=== PATIENT | male | born 1965 | race African-American/Black ===

== ENCOUNTER 2018-12-08 13:29 | Inpatient (IN) | payer OTHER ==
[2018-12-08 14:21] VITALS: BMI 30.2
--- NOTE | 2018-12-08 15:01 | HP ---
CIWA Score Nausea/Vomitin-No Nausea/No Vomiting Muscle Tremors: 4-Moderate,w/Arms Extend Anxiety: 4-Mod. Anxious/Guarded Agitation: 4-Moderately Restless Paroxysmal Sweats: 3 Orientation: 0-Oriented Tacttile Disturbances: 0-None Auditory Disturbances: 0-None Visual Disturbances: 0-None Headache: 1-Very Mild CIWA-Ar Total Score: 16 - Admission Criteria OASAS Guidelines: Admission for Medically Managed Detox: Requires at least one of the followin. CIWA greater than 12 2. Seizures within the past 24 hours 3. Delirium tremens within the past 24 hours 4. Hallucinations within the past 24 hours 5. Acute intervention needed for co occurring medical disorder 6. Acute intervention needed for co occurring psychiatric disorder 7. Severe withdrawal that cannot be handled at a lower level of care (continued vomiting, continued diarrhea, abnormal vital signs) requiring intravenous medication and/or fluids 8. Admission ROS S - [facility] Chief Complaint: i need help Allergies/Adverse Reactions: Allergies Allergy/AdvReac Type Severity Reaction Status Date / Time No Known Allergies Allergy Verified 12/08/18 14:42 History of Present Illness: pt is a 52yr old male with a history of alcohol and cocaine dependence seeking detox for treatment. Exam Limitations: No Limitations - Ebola screening Have you traveled outside of the country in the last 21 days: No Have you had contact with anyone from an Ebola affected area: No Have you been sick,other than usual withdrawal symptoms: No Do you have a fever: No - Review of Systems Constitutional: Chills, Diaphoresis, Night Sweats, Changes in sleep EENT: reports: Blurred Vision Respiratory: reports: No Symptoms reported Cardiac: reports: No Symptoms Reported GI: reports: Poor Appetite, Poor Fluid Intake : reports: Frequency Musculoskeletal: reports: Joint Pain Integumentary: reports: Flushing, Sweating, Other (ligia abscess to righ and left arm for IVD use) Neuro: reports: Headache, Tingling, Tremors Endocrine: reports: Excessive Sweating, Flushing, Intolerance to Cold, Intolerance to Heat Hematology: reports: No Symptoms Reported Psychiatric: reports: Judgement Intact, Mood/Affect Appropiate, Orientated x3, Agitated, Anxious Other Systems: Reviewed and Negative Patient History - Patient Medical History Hx Anemia: No Hx Asthma: No Hx Chronic Obstructive Pulmonary Disease (COPD): No Hx Cancer: No Hx Cardiac Disorders: No Hx Congestive Heart Failure: No Hx Hypertension: No Hx Hypercholesterolemia: No Hx Pacemaker: No HX Cerebrovascular Accident: No Hx Seizures: No Hx Dementia: No Hx Diabetes: No Hx Gastrointestinal Disorders: No Hx Liver Disease: No Hx Genitourinary Disorders: No Hx Sexually Transmitted Disorders: No Hx Renal Disease (ESRD): No Hx Thyroid Disease: No Hx Human Immunodeficiency Virus (HIV): Yes (since 1991-not currently taking any meds) Hx Hepatitis C: Yes Hx Depression: No Hx Suicide Attempt: No (denies) Hx Bipolar Disorder: No Hx Schizophrenia: No - Patient Surgical History Past Surgical History: No - PPD History Previous Implant?: Yes Documented Results: Negative w/o proof PPD to be Administered?: Yes - Reproductive History Patient is a Female of Child Bearing Age (11 -55 yrs old): No - Smoking Cessation Smoking history: Current every day smoker Have you smoked in the past 12 months: Yes Aproximately how many cigarettes per day: 10 Hx Chewing Tobacco Use: No Initiated information on smoking cessation: Yes 'Breaking Loose' booklet given: 12/08/18 - Substance & Tx. History Hx Alcohol Use: Yes Hx Substance Use: Yes Substance Use Type: Alcohol, Cocaine Hx Substance Use Treatment: Yes ([facility]) - Substances Abused Alcohol Route: Oral Frequency: Daily Amount used: whisky- one pint/beer 6pack Age of first use: 15 Date of Last Use: 12/08/18 Cocaine Route: Injection Frequency: 3-6 times per week Amount used: quarter gram Age of first use: 17 Date of Last Use: 12/07/18 Family Disease History - Family Disease History Family Disease History: Diabetes: Father Admission Physical Exam S - Vital Signs Vital Signs: Vital Signs - 24 hr 12/08/18 14:19 Temperature 98.8 F Pulse Rate 98 H Respiratory 18 Rate Blood Pressure 163/78 - Physical General Appearance: Yes: Appropriately Dressed, Moderate Distress, Obese, Tremorous, Irritable, Sweating, Anxious HEENTM: Yes: Hearing grossly Normal, Normal Voice, Nasal Congestion, Rhinorrhea Respiratory: Yes: Lungs Clear, Normal Breath Sounds, No Respiratory Distress Neck: Yes: No masses,lesions,Nodules Breast: Yes: Within Normal Limits Cardiology: Yes: Regular Rhythm, Regular Rate, S1, S2 Abdominal: Yes: Normal Bowel Sounds, Non Tender, Soft Genitourinary: Yes: Within Normal Limits Back: Yes: Normal Inspection Musculoskeletal: Yes: full range of Motion, Back pain Extremities: Yes: Normal Capillary Refill, Normal Inspection, Tremors Neurological: Yes: Fully Oriented, Alert, Normal Response Integumentary: Yes: Normal Color, Diaphoresis, Track Perez Lymphatic: Yes: Within Normal Limits - Diagnostic (1) Alcohol dependence with uncomplicated withdrawal Current Visit: Yes Status: Chronic (2) Methadone maintenance therapy patient Current Visit: Yes Status: Chronic Comment: pending verification (3) Nicotine dependence Current Visit: Yes Status: Chronic Qualifiers: Nicotine product type: cigarettes Substance use status: uncomplicated Qualified Code(s): F17.210 - Nicotine dependence, cigarettes, uncomplicated (4) Cocaine dependence Current Visit: Yes Status: Chronic Qualifiers: Substance use status: uncomplicated Qualified Code(s): F14.20 - Cocaine dependence, uncomplicated Cleared for Admission S - Detox or Rehab [facility] Level of Care: Medically Managed Detox Regimen/Protocol: Librium S Breath Alcohol Content Breath Alcohol Content: 0 Urine Drug Screen - Results Drug Screen Negative: No Urine Drug Screen Results: RICKY-Cocaine, OPI-Opiates, MTD-Methadone
[2018-12-08] MEDS ORDERED: IBUPROFEN 400 MG TABLET (FP) PO PRN (15:09)
[2018-12-08] MEDS ORDERED: chlordiazePOXIDE HCL 25 MG CAPSULE PO PRN (15:09)
[2018-12-08] MEDS ORDERED: MAG HYDROX/AL HYDROX/SIMETH 30 ML UNIT-DOSE CUP PO PRN (15:09)
[2018-12-08] MEDS ORDERED: ACETAMINOPHEN 325 MG TABLET (FP) PO PRN (15:09)
[2018-12-08] MEDS ORDERED: guaiFENesin/D-METHORPHAN HB 10 ML UNIT-DOSE CUPS PO PRN (15:09)
[2018-12-08] MEDS ORDERED: hydrOXYzine PAMOATE 50 MG CAPSULE (FP) PO PRN (15:09)
[2018-12-08] MEDS ORDERED: MAGNESIUM HYDROX 2400MG/30ML ORAL SUSPENSION 30 ML CUP PO PRN (15:09)
[2018-12-08] MEDS ORDERED: MAGNESIUM CITRATE 300 ML BOTTLE PO PRN (15:09)
[2018-12-08] MEDS ORDERED: MENTHOL/PHENOL 1 EACH UD MM PRN (15:09)
[2018-12-08] MEDS ORDERED: P-EPHED 60MG/TRIPROLIDI 2.5MG TABLET PO PRN (15:09)
[2018-12-08] MEDS ORDERED: LOPERAMIDE HCL 2 MG CAPSULE PO PRN (15:09)
[2018-12-08] MEDS ORDERED: NICOTINE POLACRILEX 4 MG GUM BC PRN (15:09)
[2018-12-08] MEDS ORDERED: chlordiazePOXIDE HCL 25 MG CAPSULE PO ONE (15:55)
[2018-12-08] MEDS ORDERED: METHADONE HCL 10 MG TABLET PO ONE (15:55)
[2018-12-08] MEDS: chlordiazePOXIDE HCL 25 MG CAPSULE PO SCH ×2 (17:50→22:14)
[2018-12-08] MEDS ORDERED: MELATONIN 5 MG TABLETS PO PRN (22:00)
[2018-12-08] MEDS: THIAMINE HCL 100 MG TABLET (FP) PO SCH (22:14)
[2018-12-08] MEDS: SULFAMETHOXAZOLE/TRIMETHOPRIM 800MG/160MG D.S. TABLET PO SCH (22:14)
[2018-12-09] MEDS ORDERED: METHADONE HCL 40 MG DISPERSABLE TABLET ONE (04:59)
[2018-12-09] MEDS ORDERED: METHADONE HCL 10 MG TABLET ONE (04:59)
[2018-12-09] MEDS: METHADONE 80 MG, METHADONE 20 MG PO SCH (05:20)
[2018-12-09] MEDS: chlordiazePOXIDE HCL 25 MG CAPSULE PO SCH ×4 (05:20→22:22)
[2018-12-09] MEDS ORDERED: METHADONE HCL 40 MG DISPERSABLE TABLET PO SCH (06:00)
[2018-12-09] MEDS: SULFAMETHOXAZOLE/TRIMETHOPRIM 800MG/160MG D.S. TABLET PO SCH ×2 (10:08→21:45)
[2018-12-09] MEDS: PRENATAL VITAMINS W/ FOLIC ACID TABLET (FP) PO SCH (10:10)
[2018-12-09] MEDS: NICOTINE 21 MG/24 HOURS TOPICAL PATCH TD SCH (10:10)
[2018-12-09 10:27] LABS: HEMATOCRIT 27.9 % (35.4-49); HEMOGLOBIN 8.3 GM/dL (11.7-16.9); MCHC 29.7 g/dl (32.0-35.9); MEAN CELL VOLUME 58.7 fl (80-96); MEAN PLT VOLUME 8.5 fl (7.5-11.1); PLATELET COUNT 292 K/MM3 (134-434); RBC 4.76 M/mm3 (4.00-5.60); RDW 21.4 % (11.9-15.9)
[2018-12-09 10:47] LABS: ALBUMIN 2.2 g/dl (3.4-5.0); ALK PHOS 124 U/L (45-117); ANION GAP 5 MMOL/L (8-16); BILIRUBIN,TOTAL 0.3 mg/dL (0.2-1); BLOOD UREA NITROGEN 16 mg/dL (7-18); CALCIUM 7.9 mg/dL (8.5-10.1); CHLORIDE 108 mmol/L (98-107); CO2 28 mmol/L (21-32); CREATININE 1.2 mg/dL (0.55-1.3); GLUCOSE,RANDOM 87 mg/dL (74-106); POTASSIUM 4.2 mmol/L (3.5-5.1); SGOT/AST 26 U/L (15-37); SGPT/ALT 14 U/L (13-61); SODIUM 141 mmol/L (136-145); TOT PROT 9.9 g/dl (6.4-8.2)
[2018-12-09 10:54] LABS: MCH 17.4 pg (25.7-33.7)
[2018-12-09] MEDS: LISINOPRIL 5 MG TABLET (FP) PO SCH ×2 (11:11→21:45)
--- NOTE | 2018-12-09 11:20 | PN ---
S CIWA - CIWA Score Nausea/Vomitin-Mild Nausea/No Vomiting Muscle Tremors: 3 Anxiety: 3 Agitation: 3 Paroxysmal Sweats: 1-Minimal Palms Moist Orientation: 0-Oriented Tacttile Disturbances: 0-None Auditory Disturbances: 0-None Visual Disturbances: 0-None Headache: 2-Mild CIWA-Ar Total Score: 13 S Progress Note (SOAP) Subjective: ambulate with cane x 1 years in methadone maintenance program tremor sweating Objective: 12/09/18 11:18 Vital Signs Temperature 97.6 F 12/09/18 09:07 Pulse Rate 89 12/09/18 09:07 Respiratory Rate 20 12/09/18 09:07 Blood Pressure 163/91 12/09/18 09:07 O2 Sat by Pulse Oximetry (%) Laboratory Last Values WBC 6.0 K/mm3 (4.0-10.0) 12/09/18 06:00 RBC 4.76 M/mm3 (4.00-5.60) 12/09/18 06:00 Hgb 8.3 GM/dL (11.7-16.9) L 12/09/18 06:00 Hct 27.9 % (35.4-49) L 12/09/18 06:00 MCV 58.7 fl (80-96) L 12/09/18 06:00 MCH 17.4 pg (25.7-33.7) L 12/09/18 06:00 MCHC 29.7 g/dl (32.0-35.9) L 12/09/18 06:00 RDW 21.4 % (11.9-15.9) H 12/09/18 06:00 Plt Count 292 K/MM3 (134-434) 12/09/18 06:00 MPV 8.5 fl (7.5-11.1) 12/09/18 06:00 Sodium 141 mmol/L (136-145) 12/09/18 06:00 Potassium 4.2 mmol/L (3.5-5.1) 12/09/18 06:00 Chloride 108 mmol/L (98-107) H 12/09/18 06:00 Carbon Dioxide 28 mmol/L (21-32) 12/09/18 06:00 Anion Gap 5 MMOL/L (8-16) L 12/09/18 06:00 BUN 16 mg/dL (7-18) 12/09/18 06:00 Creatinine 1.2 mg/dL (0.55-1.3) 12/09/18 06:00 Creat Clearance w eGFR > 60 (>60) 12/09/18 06:00 Random Glucose 87 mg/dL (74-106) 12/09/18 06:00 Calcium 7.9 mg/dL (8.5-10.1) L 12/09/18 06:00 Total Bilirubin 0.3 mg/dL (0.2-1) 12/09/18 06:00 AST 26 U/L (15-37) 12/09/18 06:00 ALT 14 U/L (13-61) 12/09/18 06:00 Alkaline Phosphatase 124 U/L (45-117) H 12/09/18 06:00 Total Protein 9.9 g/dl (6.4-8.2) H 12/09/18 06:00 Albumin 2.2 g/dl (3.4-5.0) L 12/09/18 06:00 lab noted low C++ Assessment: 12/09/18 11:19 withdrawal sx 12/09/18 11:20 cane ambulation hypocalcemia Plan: continue detox oscal supplement
[2018-12-09] MEDS: CALCIUM 250MG/VIT-D 125 UNITS 1 COMBO TABLET PO SCH ×2 (12:20→21:45)
[2018-12-09] MEDS ORDERED: cloNIDine HCL 0.1 MG TABLET PO ONE (21:21)
[2018-12-09] MEDS: THIAMINE HCL 100 MG TABLET (FP) PO SCH (21:45)
[2018-12-10] MEDS ORDERED: METHADONE HCL 10 MG TABLET ONE (04:31)
[2018-12-10] MEDS ORDERED: METHADONE HCL 40 MG DISPERSABLE TABLET ONE (04:31)
[2018-12-10] MEDS: METHADONE 80 MG, METHADONE 20 MG PO SCH (06:14)
[2018-12-10] MEDS: chlordiazePOXIDE HCL 25 MG CAPSULE PO SCH ×2 (06:14→10:02)
[2018-12-10] MEDS: PRENATAL VITAMINS W/ FOLIC ACID TABLET (FP) PO SCH (10:02)
[2018-12-10] MEDS: NICOTINE 21 MG/24 HOURS TOPICAL PATCH TD SCH (10:02)
[2018-12-10] MEDS: FERROUS SO4 325 MG TABLET (FP) PO SCH ×2 (10:02→17:30)
[2018-12-10] MEDS: LISINOPRIL 5 MG TABLET (FP) PO SCH ×2 (10:02→22:08)
[2018-12-10] MEDS: CALCIUM 250MG/VIT-D 125 UNITS 1 COMBO TABLET PO SCH ×2 (10:02→22:10)
[2018-12-10] MEDS: SULFAMETHOXAZOLE/TRIMETHOPRIM 800MG/160MG D.S. TABLET PO SCH ×2 (10:02→22:08)
--- NOTE | 2018-12-10 10:05 | PN ---
S CIWA - CIWA Score Nausea/Vomitin-Mild Nausea/No Vomiting Muscle Tremors: 2 Anxiety: 1-Mildly Anxious Agitation: 1-Slight > Activity Paroxysmal Sweats: 1-Minimal Palms Moist Orientation: 1-Uncertain about Date Tacttile Disturbances: 0-None Auditory Disturbances: 0-None Visual Disturbances: 0-None Headache: 2-Mild CIWA-Ar Total Score: 9 [facility] Progress Note (SOAP) Subjective: tremor sweating low energy Objective: 12/10/18 10:05 Vital Signs Temperature 98.5 F 12/10/18 09:13 Pulse Rate 88 12/10/18 09:13 Respiratory Rate 18 12/10/18 09:13 Blood Pressure 143/93 12/10/18 09:13 O2 Sat by Pulse Oximetry (%) Laboratory Last Values WBC 6.0 K/mm3 (4.0-10.0) 12/09/18 06:00 RBC 4.76 M/mm3 (4.00-5.60) 12/09/18 06:00 Hgb 8.3 GM/dL (11.7-16.9) L 12/09/18 06:00 Hct 27.9 % (35.4-49) L 12/09/18 06:00 MCV 58.7 fl (80-96) L 12/09/18 06:00 MCH 17.4 pg (25.7-33.7) L 12/09/18 06:00 MCHC 29.7 g/dl (32.0-35.9) L 12/09/18 06:00 RDW 21.4 % (11.9-15.9) H 12/09/18 06:00 Plt Count 292 K/MM3 (134-434) 12/09/18 06:00 MPV 8.5 fl (7.5-11.1) 12/09/18 06:00 Sodium 141 mmol/L (136-145) 12/09/18 06:00 Potassium 4.2 mmol/L (3.5-5.1) 12/09/18 06:00 Chloride 108 mmol/L (98-107) H 12/09/18 06:00 Carbon Dioxide 28 mmol/L (21-32) 12/09/18 06:00 Anion Gap 5 MMOL/L (8-16) L 12/09/18 06:00 BUN 16 mg/dL (7-18) 12/09/18 06:00 Creatinine 1.2 mg/dL (0.55-1.3) 12/09/18 06:00 Creat Clearance w eGFR > 60 (>60) 12/09/18 06:00 Random Glucose 87 mg/dL (74-106) 12/09/18 06:00 Calcium 7.9 mg/dL (8.5-10.1) L 12/09/18 06:00 Total Bilirubin 0.3 mg/dL (0.2-1) 12/09/18 06:00 AST 26 U/L (15-37) 12/09/18 06:00 ALT 14 U/L (13-61) 12/09/18 06:00 Alkaline Phosphatase 124 U/L (45-117) H 12/09/18 06:00 Total Protein 9.9 g/dl (6.4-8.2) H 12/09/18 06:00 Albumin 2.2 g/dl (3.4-5.0) L 12/09/18 06:00 RPR Titer Nonreactive (NONREACTIVE) 12/09/18 06:00 lab noted Assessment: 12/10/18 10:06 withdrawal sx Plan: continue detox
[2018-12-10] MEDS: chlordiazePOXIDE 5 MG CAPSULE PO SCH ×2 (17:30→22:08)
[2018-12-10] MEDS: THIAMINE HCL 100 MG TABLET (FP) PO SCH (22:08)
[2018-12-11] MEDS ORDERED: METHADONE HCL 10 MG TABLET ONE (04:48)
[2018-12-11] MEDS ORDERED: METHADONE HCL 40 MG DISPERSABLE TABLET ONE (04:49)
[2018-12-11] MEDS: METHADONE 80 MG, METHADONE 20 MG PO SCH (05:02)
[2018-12-11] MEDS: chlordiazePOXIDE 5 MG CAPSULE PO SCH ×2 (05:02→10:20)
[2018-12-11] MEDS: FERROUS SO4 325 MG TABLET (FP) PO SCH ×2 (08:09→17:33)
[2018-12-11] MEDS: SULFAMETHOXAZOLE/TRIMETHOPRIM 800MG/160MG D.S. TABLET PO SCH ×2 (10:20→22:53)
[2018-12-11] MEDS: LISINOPRIL 5 MG TABLET (FP) PO SCH ×2 (10:20→22:53)
[2018-12-11] MEDS: CALCIUM 250MG/VIT-D 125 UNITS 1 COMBO TABLET PO SCH ×2 (10:22→22:53)
[2018-12-11] MEDS: NICOTINE 21 MG/24 HOURS TOPICAL PATCH TD SCH (10:22)
[2018-12-11] MEDS: PRENATAL VITAMINS W/ FOLIC ACID TABLET (FP) PO SCH (10:22)
--- NOTE | 2018-12-11 15:37 | PN ---
[facility] Progress Note (SOAP) Subjective: Sweating, Body Aches, Tremors. Objective: PATIENT A & O X 3, OBSERVED AMBULATING ON UNIT. IN NO ACUTE DISTRESS. 12/11/18 15:33 Vital Signs Temperature 97.1 F L 12/11/18 13:59 Pulse Rate 90 12/11/18 13:59 Respiratory Rate 18 12/11/18 13:59 Blood Pressure 146/81 12/11/18 13:59 O2 Sat by Pulse Oximetry (%) Laboratory Tests 12/09/18 12/09/18 12/09/18 06:00 06:00 06:00 WBC 6.0 RBC 4.76 Hgb 8.3 L Hct 27.9 L MCV 58.7 L MCH 17.4 L MCHC 29.7 L RDW 21.4 H Plt Count 292 MPV 8.5 Sodium 141 Potassium 4.2 Chloride 108 H Carbon Dioxide 28 Anion Gap 5 L BUN 16 Creatinine 1.2 Creat Clearance w eGFR > 60 Random Glucose 87 Calcium 7.9 L Total Bilirubin 0.3 AST 26 ALT 14 Alkaline Phosphatase 124 H Total Protein 9.9 H Albumin 2.2 L RPR Titer Nonreactive LABS NOTED. Assessment: 12/11/18 15:34 WITHDRAWAL SYMPTOMS. ANEMIA. 12/11/18 15:35 Plan: CONTINUE DETOX. INCREASE DAILY PO FLUID INTAKE. CONTINUE FEOSOL BIDWM.
[2018-12-11] MEDS: chlordiazePOXIDE HCL 10 MG CAPSULE PO SCH ×2 (17:33→22:53)
[2018-12-11] MEDS: THIAMINE HCL 100 MG TABLET (FP) PO SCH (22:53)
[2018-12-12] MEDS ORDERED: METHADONE HCL 10 MG TABLET ONE (03:49)
[2018-12-12] MEDS ORDERED: METHADONE HCL 40 MG DISPERSABLE TABLET ONE (03:50)
[2018-12-12] MEDS: METHADONE 80 MG, METHADONE 20 MG PO SCH (05:39)
[2018-12-12] MEDS: chlordiazePOXIDE HCL 10 MG CAPSULE PO SCH ×2 (05:39→12:02)
[2018-12-12] MEDS: FERROUS SO4 325 MG TABLET (FP) PO SCH (08:44)
[2018-12-12] MEDS: PRENATAL VITAMINS W/ FOLIC ACID TABLET (FP) PO SCH (10:21)
[2018-12-12] MEDS: CALCIUM 250MG/VIT-D 125 UNITS 1 COMBO TABLET PO SCH (10:22)
[2018-12-12] MEDS: NICOTINE 21 MG/24 HOURS TOPICAL PATCH TD SCH (10:22)
[2018-12-12] MEDS: LISINOPRIL 5 MG TABLET (FP) PO SCH (10:22)
[2018-12-12] MEDS: SULFAMETHOXAZOLE/TRIMETHOPRIM 800MG/160MG D.S. TABLET PO SCH (10:22)
[2018-12-12 13:21] VITALS: BP 152/89; PULSE 89; TEMP 96.9
--- NOTE | 2018-12-12 14:57 | PN ---
[facility] Progress Note (SOAP) Subjective: Fatigue, Body Aches. Objective: PATIENT A & O X 3, OBSERVED AMBULATING ON UNIT. IN NO ACUTE DISTRESS. PATIENT REPORTS SWELLING IN BILATERAL ANKLES X APPROX. 2 MONTHS. DARKENED SKIN DISCOLORATION AND SWELLING NOTED IN BILATERAL ANKLE JOINTS AND FEET. NO ERYTHEMA, WOUNDS, OR DISCHARGE NOTED IN AFFECTED AREAS. NO DISCOLORATION, ERYTHEMA, OR SWELLING NOTED IN BILATERAL LOWER LEGS ABOVE ANKLE AREAS. PATIENT HAS FULL ROM OF BILATERAL FEET AND TOES. CAPILLARY REFILL OF BILATERAL TOES < 2 SECONDS. PEDAL PULSES PALPABLE EQUALLY IN BILATERAL FEET. 12/12/18 14:51 Vital Signs Temperature 96.9 F L 12/12/18 13:20 Pulse Rate 89 12/12/18 13:20 Respiratory Rate 18 12/12/18 13:20 Blood Pressure 152/89 12/12/18 13:20 O2 Sat by Pulse Oximetry (%) Laboratory Tests 12/09/18 12/09/18 12/09/18 06:00 06:00 06:00 WBC 6.0 RBC 4.76 Hgb 8.3 L Hct 27.9 L MCV 58.7 L MCH 17.4 L MCHC 29.7 L RDW 21.4 H Plt Count 292 MPV 8.5 Sodium 141 Potassium 4.2 Chloride 108 H Carbon Dioxide 28 Anion Gap 5 L BUN 16 Creatinine 1.2 Creat Clearance w eGFR > 60 Random Glucose 87 Calcium 7.9 L Total Bilirubin 0.3 AST 26 ALT 14 Alkaline Phosphatase 124 H Total Protein 9.9 H Albumin 2.2 L RPR Titer Nonreactive LABS NOTED. Assessment: 12/12/18 14:59 WITHDRAWAL SYMPTOMS. ANEMIA. Plan: CONTINUE DETOX. CONTINUE FEOSOL. CLONIDINE, 0.1 MG X 1 FOR ELEVATED BP (PATIENT DENIES KNOWN HISTORY OF HTN). DUE TO SIGNIFICANT FATIGUE CAUSING DIFFICULTY IN AMBULATION, PATIENT PERMITTED TO REMAIN ON DETOX UNIT UNTIL TOMORROW AM, AT WHICH TIME FOLLOW-UP EVALUATION TO BE DONE TO DETERMINE PATIENT'S READINESS FOR DISCHARGE. PATIENT ADVISED TO FOLLOW-UP WITH [employer] DR. CA ([place], [place]) SOON POSSIBLE AFTER DISCHARGE FROM DETOX UNIT FOR FURTHER EVALUATION OF CONDITION THAT HAS BEEN AFFECTING BILATERAL ANKLES, FOR ANEMIA NOTED WHILE ADMITTED FOR DETOX AND FOR ELEVATED BP NOTED WHILE ADMITTED FOR DETOX. PATIENT VERBALIZED UNDERSTANDING OF RECOMMENDATIONS.
[2018-12-12] MEDS ORDERED: cloNIDine HCL 0.1 MG TABLET PO ONE (15:05)
--- NOTE | 2018-12-12 15:41 | DS ---
[facility] Detox Discharge Summary Admission Date: 12/08/18 Discharge Date: 12/12/18 - History Present History: Alcohol Dependence, Cocaine Dependence Additional Comments: DESPITE THE FACT THAT PATIENT PREVIOUSLY REQUESTED TO REMAIN ON UNIT UNTIL TOMORROW. HOWEVER, DESPITE ENCOURAGEMENT NOT TO LEAVE DETOX UNIT, PATIENT NOW INSISTS ON LEAVING DETOX UNIT. HOWEVER, DUE TO PATIENT'S CURRENT WITHDRAWAL AND MEDICAL STATUS AND DUE TO FACT THAT PATIENT IS A M.M.T.P. PATIENT ([facility] M[facility], [place], [place]) AND HIS PROGRAM WILL NOT BE OPEN TOMORROW, PATIENT INFORMED THAT HE IS LEAVING DETOX UNIT AGAINST MEDICAL ADVICE. RISKS OF LEAVING DETOX UNIT AGAINST MEDICAL ADVICE AND PRIOR TO COMPLETION OF DETOX REGIMEN EXPLAINED TO PATIENT. PATIENT ADVISED TO GO IMMEDIATELY TO NEAREST ER SHOULD ANY INTOLERABLE DETOX SYMPTOMS DEVELOP AT ANY TIME. PATIENT VERBALIZED UNDERSTANDING OF ALL INFORMATION / RECOMMENDATIONS PRESENTED TO HIM PRIOR TO DEPARTURE FROM DETOX UNIT. Pertinent Past History: Hep C, H.I.V., Use of Cane As Ambulatory Aid, M.M.T.P., Nicotine Dependence. - Physical Exam Results Vital Signs: Vital Signs Temperature 96.9 F L 12/12/18 13:20 Pulse Rate 89 12/12/18 13:20 Respiratory Rate 18 12/12/18 13:20 Blood Pressure 152/89 12/12/18 13:20 O2 Sat by Pulse Oximetry (%) Pertinent Admission Physical Exam Findings: WITHDRAWAL SYMPTOMS. Laboratory Tests 12/09/18 12/09/18 12/09/18 06:00 06:00 06:00 WBC 6.0 RBC 4.76 Hgb 8.3 L Hct 27.9 L MCV 58.7 L MCH 17.4 L MCHC 29.7 L RDW 21.4 H Plt Count 292 MPV 8.5 Sodium 141 Potassium 4.2 Chloride 108 H Carbon Dioxide 28 Anion Gap 5 L BUN 16 Creatinine 1.2 Creat Clearance w eGFR > 60 Random Glucose 87 Calcium 7.9 L Total Bilirubin 0.3 AST 26 ALT 14 Alkaline Phosphatase 124 H Total Protein 9.9 H Albumin 2.2 L RPR Titer Nonreactive LABS NOTED. - Treatment Hospital Course: Detoxed Safely - Medication Discharge Medications: Ambulatory Orders NK [No Known Home Medication] 12/08/18 - Diagnosis (1) Use of cane as ambulatory aid Current Visit: Yes Status: Acute (2) Alcohol dependence with uncomplicated withdrawal Current Visit: Yes Status: Acute (3) Cocaine dependence Current Visit: Yes Status: Chronic Qualifiers: Substance use status: uncomplicated Qualified Code(s): F14.20 - Cocaine dependence, uncomplicated (4) Methadone maintenance therapy patient Current Visit: Yes Status: Chronic (5) Nicotine dependence Current Visit: Yes Status: Chronic Qualifiers: Nicotine product type: cigarettes Substance use status: uncomplicated Qualified Code(s): F17.210 - Nicotine dependence, cigarettes, uncomplicated - AMA Did Patient Leave Against Medical Advice: Yes (PATIENT DID NOT WISH TO REMIAN TO COMPLETE DETOX REGIMEN.)
== END 2018-12-12 16:01 | disposition left against medical advice (07) | DRG 770 ==
LOC: YASAS 13:29 → Y3N 15:49
PROVIDERS: ADMIT Neuromusculoskeletal Medicine & OMM; ATTEND Neuromusculoskeletal Medicine & OMM
PROC: HZ2ZZZZ Detoxification Services for Substance Abuse Treatment (ICD-10-PCS; principal; 2018-12-08)
DX: F10.230 Alcohol dependence with withdrawal, uncomplicated (principal); F14.20 Cocaine dependence, uncomplicated; F12.20 Cannabis dependence, uncomplicated; F17.210 Nicotine dependence, cigarettes, uncomplicated; Z21 Asymptomatic human immunodeficiency virus [HIV] infection status; B18.2 Chronic viral hepatitis C; E83.51 Hypocalcemia; R26.89 Other abnormalities of gait and mobility; Z99.89 Dependence on other enabling machines and devices
CPT/HCPCS: 36415; 80053; 85027; 86593; J0735